=== PATIENT | female | born 1950 | race Asian ===

== ENCOUNTER 2016-12-07 21:33 | Emergency (ER) | payer SELFPAY ==
[~2016-12-07] VITALS: Ht 147.3 cm; Wt 49.9 kg
[2016-12-07] MEDS ORDERED: NORCO 5-325 TA1 EAC1 ORAL (22:01)
[2016-12-07] MEDS ORDERED: ACYCLOVIR800 MG ORAL (22:01)
[2016-12-07] MEDS ORDERED: NAPROXEN375 M2 ORAL (22:01)
[2016-12-07 22:16] VITALS: BP 179/91
[2016-12-07 22:17] VITALS: BP 160/75
--- NOTE | 2016-12-08 02:13 | Emergency Room Report ---
History of Present Illness General Chief Complaint: Pain Source: Patient Present Illness HPI Patient is 66-year-old female who presented after increased skin rash. Patient reported having some sharp pain to the right side of her chest which had gradual progressive last 3 days. Patient noticed a blistering to her upper back. This had occurred in the same location of pain. She denied any fever. She denied any other locations of symptoms. She denied any severe headache. Allergies: Coded Allergies: No Known Allergies (Unverified , 12/07/16) Patient History Past Medical History: see triage record Last Menstrual Period: Menopause Now: No Reviewed Nursing Documentation: PMH: Agreed, PSxH: Agreed Nursing Documentation-PMH Past Medical History: No History, Except For Hx Asthma: Yes Review of Systems All Other Systems: negative except mentioned in HPI Physical Exam Vital Signs Date Time Temp Pulse Resp B/P Pulse Ox O2 Delivery O2 Flow Rate FiO2 12/07/16 21:45 98.2 79 16 160/75 100 Room Air General Appearance: well appearing, no apparent distress, alert, GCS 15 Head: normocephalic, atraumatic ENT: hearing grossly normal, normal voice Neck: full range of motion, supple Respiratory: no respiratory distress, speaking full sentences Musculoskeletal: no calf tenderness Neurologic: normal inspection, alert, oriented x3, normal gait Psychiatric: mood/affect normal Skin: rash - patchy vesicle rash to upper back Medical Decision Making Diagnostic Impression: Primary Impression: Shingles Additional Impression: Pain ER Course Patient presented for skin rash. Differential diagnosis included was not limited to shingles, contact dermatitis, abscess, among others. Patient's benign exam and does not appear to require any further imaging or laboratory testing at this time. The patient presented vesicular rash to her chest consistent with shingles. The patient given prescriptions for pain medication as well as acyclovir. The patient is advised to follow up with primary care doctor in 1-2 days. Patient is advised to return if any worsening condition or if any changes in status that are concerning. Last Vital Signs Date Time Temp Pulse Resp B/P Pulse Ox O2 Delivery O2 Flow Rate FiO2 12/07/16 22:17 98.2 16 160/75 100 Room Air 12/07/16 22:16 60 Status: improved Disposition: HOME, SELF-CARE Condition: Stable Scripts Naproxen* (NAPROXEN*) 375 Mg Tablet. 375 MG ORAL TWICE A DAY, #20 TAB Prov: Franky Olvera 12/07/16 Hydrocodone Bit/Acetaminophen 5-325* (NORCO 5-325 TABLET*) 1 Each Tablet 1 TAB ORAL Q4H Y for For Pain, #30 TAB Prov: Franky Olvera 12/07/16 Acyclovir* (ZOVIRAX*) 800 Mg Tablet 800 MG ORAL FIVE TIMES A DAY, #35 TAB Prov: Franky Olvera 12/07/16 Referrals: NOT CHOSEN IPA/MD,REFERRING (PCP) Patient Instructions: Marisa [id number] Franky Olvera Dec 08, 2016 02:13
== END 2016-12-07 22:18 | disposition home or self-care (01) ==
LOC: EMR 22:05
DX: B02.9 Zoster without complications (principal); J45.909 Unspecified asthma, uncomplicated
CPT/HCPCS: 99284